=== PATIENT | male | born 2000 | race Caucasian/White ===

== ENCOUNTER 2023-01-25 23:34 | Emergency (ER) | payer OTHER ==
[~2023-01-25] VITALS: Ht 198.1 cm; Wt 108.9 kg
[~2023-01-25 23:34] MED LIST: Norco 5-325 Ta1 EACH PO
[2023-01-26 04:00] VITALS: BP 122/80
== END 2023-01-26 05:01 | disposition home or self-care (01) ==
LOC: ER 23:34
DX: K62.5 Hemorrhage of anus and rectum (principal); K59.00 Constipation, unspecified; K64.4 Residual hemorrhoidal skin tags
CPT/HCPCS: 99282